=== PATIENT | female | born 1995 | race Caucasian/White ===

== ENCOUNTER 2022-08-18 06:21 | Inpatient (IN) ==
[2022-08-18] MEDS ORDERED: D5 1/2 NS 1,000 ML 1,000 ML IV SCH (06:37)
[2022-08-18] MEDS ORDERED: ANCEF VIAL 1 GRAM IVP ONE (06:37)
[2022-08-18] MEDS ORDERED: NS 100 ML IV 100 ML ONE (06:38)
[2022-08-18] MEDS ORDERED: LR 1,000 ML IV 1,000 ML IV ONE ×2 (06:38→07:23)
[2022-08-18] MEDS ORDERED: ZOFRAN INJ 4 MG VIAL ONE (06:48)
[2022-08-18] MEDS ORDERED: REGLAN INJ 10 MG VIAL ONE (06:48)
[2022-08-18] MEDS ORDERED: PEPCID 20 MG VIAL ONE (06:49)
[2022-08-18] MEDS ORDERED: PITOCIN ONE (07:17)
[2022-08-18] MEDS ORDERED: XYLOCAINE 2 % (PLAIN) ONE (07:18)
[2022-08-18] MEDS ORDERED: EPHEDRINE SULFATE INJ ONE (07:18)
[2022-08-18] MEDS ORDERED: DILAUDID INJ ONE (07:18)
[2022-08-18] MEDS ORDERED: MARCAINE SPINAL ONE (07:18)
[2022-08-18] MEDS ORDERED: D5 1/2 NS 1,000 mL + PITOCIN 20 UNITS/L IV 20 UNITS/1,000 ML BAG IV ONE (08:09)
[2022-08-18] MEDS ORDERED: TORADOL 30 MG VIAL ONE (08:21)
[2022-08-18] MEDS ORDERED: VERSED ONE (08:24)
[2022-08-18] MEDS ORDERED: DIPRIVAN VIAL 20 ML ONE (08:35)
[2022-08-18] MEDS ORDERED: DILAUDID INJ IVP PRN (09:13)
[2022-08-18] MEDS ORDERED: BENADRYL INJ 50 MG VIAL IVP PRN ×2 (09:13→09:45)
[2022-08-18] MEDS ORDERED: ZOFRAN INJ 4 MG VIAL IVP PRN ×2 (09:13→09:45)
[2022-08-18] MEDS ORDERED: NARCAN INJ IVP PRN (09:45)
[2022-08-18] MEDS ORDERED: REGLAN INJ 10 MG VIAL IVP PRN (09:45)
[2022-08-18] MEDS ORDERED: ADACEL or BOOSTRIX TDaP VACCINE IM ONE (09:45)
[2022-08-18] MEDS ORDERED: TORADOL 30 MG VIAL IVP PRN (09:45)
[2022-08-18] MEDS ORDERED: PERCOCET TAB 5/325 MG PO PRN (09:45)
[2022-08-18] MEDS ORDERED: MYLICON TAB 80 MG CHEW PO PRN (09:45)
[2022-08-18] MEDS ORDERED: D5 1/2 NS 1,000 ML 1,000 ML with PITOCIN 20 UNITS IV SCH ×2 (10:00)
[2022-08-19 05:12] LABS: HEMATOCRIT 28.9 % (36.0-47.0)
[2022-08-19 05:19] LABS: HEMOGLOBIN 10.3 g/dL (12.0-16.0)
[2022-08-19] MEDS ORDERED: PERCOCET TAB 5/325 MG PO PRN (07:30)
[2022-08-19] MEDS: COLACE CAP 100 MG PO SCH ×2 (09:44→22:30)
[2022-08-19] MEDS: PROTONIX TAB 40 MG PO SCH (09:44)
[2022-08-19] MEDS: PRENATAL PLUS PO SCH (09:44)
[2022-08-19] MEDS: MOTRIN TAB 800 MG PO PRN ×2 (09:45→22:50)
[2022-08-19] MEDS: BACTROBAN TOPICAL OINT TOP SCH ×2 (14:31→22:31)
[2022-08-19 16:21] VITALS: BMI 29.2
[2022-08-20] MEDS: BACTROBAN TOPICAL OINT TOP SCH (05:05)
[2022-08-20] MEDS: COLACE CAP 100 MG PO SCH (08:27)
[2022-08-20] MEDS: PROTONIX TAB 40 MG PO SCH (08:27)
[2022-08-20] MEDS: PRENATAL PLUS PO SCH (08:27)
[2022-08-20] MEDS: MOTRIN TAB 800 MG PO PRN (08:31)
[2022-08-20 10:27] VITALS: BP 114/69
== END 2022-08-20 11:36 | disposition home or self-care (01) | DRG 788 ==
LOC: LD 06:21 → MED/SURG 10:10
PROVIDERS: ADMIT Specialist; ATTEND Specialist